=== PATIENT | female | born 1995 | race Caucasian/White ===

== ENCOUNTER 2017-03-08 21:42 | Emergency (ER) | payer MEDICAID ==
[~2017-03-08] VITALS: Ht 167.6 cm; Wt 78.1 kg
[~2017-03-08 21:42] MED LIST: FLU60SYR19 IM
[2017-03-08 21:44] VITALS: BP 118/56; PULSE 63; RESP 18; TEMP 98.3; O2SAT 100
--- NOTE | 2017-03-08 22:26 | PD ---
HPI Chief Complaint: Headache Time Seen by Provider: 21:52 Travel History International Travel<30 days: No Contact w/Intl Traveler<30days: No Traveled to known affect area: No History of Present Illness HPI The patient was seen and examined in the presence of the nurse. This patient is 25 weeks . She complains of headache on the right forehead for the last one week. It usually hurts her at night but it's fine during the day. No thunderclap onset. No head injury. No fever. Severity is moderate. It feels like a throbbing in the right forehead. She denies any complaint. No pelvic pain or vaginal bleeding. She has not mentioned it to her physician. PFSH Past Medical History Medical History: Denies Significant Hx Diminished Hearing: No Tetanus Vaccination: Unknown Influenza Vaccination: Yes ?: LMP: EDC 06-24-16 Past Surgical History Surgical History: No Previous Surgery Social History Alcohol Use: No Tobacco Use: No Substance Use: No Allergies-Medications (Allergen,Severity, Reaction): Coded Allergies: No Known Allergies (Unverified , 03/08/17) Reported Meds & Prescriptions Reported Meds & Active Scripts Active Reported Fluarix Quad 7030-1730 Inj (Influenza Virus Vaccine) 0.5 Ml Syr 0.5 Ml IM .ONCE Review of Systems General / Constitutional: No: Fever HENT: Positive: Headaches Cardiovascular: No: Chest Pain or Discomfort Respiratory: No: Cough Physical Exam Narrative NEUROLOGICAL: Awake and alert. Pupils are equal round and reactive. Motor and sensory grossly within normal limits. Five out of 5 muscle strength in all muscle groups. Normal speech. Psych: Normal mood and affect. Normal insight and judgment. GASTROINTESTINAL: Abdomen soft, non-tender, nondistended. Positive bowel sounds. No hepato-splenomegaly, or palpable masses. No guarding. Gravid uterus is nontender Data Data Last Documented VS Vital Signs Date Time Temp Pulse Resp B/P (MAP) Pulse Ox O2 Delivery O2 Flow Rate FiO2 03/08/17 22:05 63 18 100 Room Air 03/08/17 21:44 98.3 118/56 (76) MDM Medical Decision Making Medical Screen Exam Complete: Yes Emergency Medical Condition: Yes Medical Record Reviewed: Yes Differential Diagnosis Differential diagnosis includes migraine, tension headache, cluster headache, meningitis. Narrative Course I have reviewed the patient's electronic medical record. Etiology of her headache is not entirely clear. I don't see any red flags to suggest emergent imaging is indicated. Presentation not consistent with subarachnoid hemorrhage or meningitis or stroke. There are no objective findings on exam It seems odd that the headache is only there at night and resolves during the day This makes me less likely to think it is something emergent I recommended she discuss it with her physician Return if worse Blood pressure is normal, there has been no preeclampsia this I'm going to have CBC and CMP drawn, ruling out help syndrome If labs are normal I will discharge her home Diagnosis Primary Impression: Headache Qualified Codes: R51 - Headache Additional Impression: Qualified Codes: Z3A.25 - 25 weeks gestation of Additional Instructions: The patient was advised to follow up with their physician and return if they worsen. Med/Other Pt SpecificInfo: Other Disposition: 01 DISCHARGE HOME Condition: Stable Arturo Smith MD Mar 08, 2017 22:26
[2017-03-08 23:14] LABS: AUTOMATED NEUTROPHIL # 5.5 TH/MM3 (1.8-7.7); BASOPHIL % 0.2 % (0.0-2.0); EOSINOPHIL # 0.1 TH/MM3 (0-0.4); EOSINOPHIL % 1.5 % (0.0-4.0); HEMATOCRIT 30.7 % (35.0-46.0); HEMO FLAGS DIFF FINAL; LYMPHOCYTE # 1.3 TH/MM3 (1.0-4.8); MEAN CELL VOLUME 82.4 FL (80.0-100.0); MEAN CORPUSCULAR HGB CONC 32.7 % (32.0-36.0); MONO % 7.4 % (0.0-8.0); NEUT % 73.9 % (16.0-70.0); PLATELET COUNT 249 TH/MM3 (150-450); RED BLOOD COUNT 3.73 MIL/MM3 (4.00-5.30); RED CELL DISTRIBUTION WIDTH 13.3 % (11.6-17.2); WHITE BLOOD COUNT 7.4 TH/MM3 (4.0-11.0)
[2017-03-08 23:22] LABS: CHLORIDE 107 MEQ/L (98-107); POTASSIUM 3.6 MEQ/L (3.5-5.1); SODIUM (NA) 140 MEQ/L (136-145)
[2017-03-08 23:26] LABS: ANION GAP 8 MEQ/L (5-15); BICARBONATE 24.8 MEQ/L (21.0-32.0); BLOOD UREA NITROGEN 3 MG/DL (7-18)
[2017-03-08 23:29] LABS: ALT (GPT) 13 U/L (10-53); AST (GOT) 11 U/L (15-37); GLOMERULAR FILTRATION RATE 241 ML/MIN (>89)
[2017-03-08 23:31] LABS: TOTAL BILIRUBIN ADULT 0.2 MG/DL (0.2-1.0)
[2017-03-08 23:32] LABS: ALKALINE PHOSPHATASE 97 U/L (45-117)
[2017-03-09] MEDS ORDERED: ACETAMINOPHEN 500 MG CPLT PO ONE
[2017-03-09 00:18] VITALS: BP 115/60; PULSE 72; RESP 18; O2SAT 98
[2017-03-09 00:25] LABS: BLOOD, URINE NEG (NEG); GLUCOSE,URINE NEG (NEG); KETONE, URINE NEG (NEG); NITRITE,URINE NEG (NEG); PH, URINE 5.5 (5.0-8.5)
[2017-03-09 00:38] LABS: BACTERIA, URINE FEW /hpf; RBC, URINE 0-2 /hpf (0-3); SQUAMOUS EPITHELIAL CELL URINE 0-5 /hpf (0-5); URINE COLOR STRAW (YELLW/STRAW); WBC, URINE 0-2 /hpf (0-5)
--- NOTE | 2017-03-09 00:41 | PD ---
Physical Exam Date Seen by Provider: Mar 09, 2017 Time Seen by Provider: 23:30 Narrative Accepted in transfer of care from Dr. Smith Data Data Last Documented VS Vital Signs Date Time Temp Pulse Resp B/P (MAP) Pulse Ox O2 Delivery O2 Flow Rate FiO2 03/09/17 00:18 72 18 115/60 (78) 98 Room Air 03/08/17 21:44 98.3 Orders Orders Complete Blood Count With Diff (03/08/17 22:37) Comprehensive Metabolic Panel (03/08/17 22:37) Acetaminophen (Tylenol) (03/09/17 00:00) Ua Includes Microscopic (03/09/17 00:03) Ed Discharge Order (03/09/17 00:38) Labs Laboratory Tests Test 03/08/17 22:55 03/09/17 00:00 White Blood Count 7.4 TH/MM3 Red Blood Count 3.73 MIL/MM3 Hemoglobin 10.1 GM/DL Hematocrit 30.7 % Mean Corpuscular Volume 82.4 FL Mean Corpuscular Hemoglobin 27.0 PG Mean Corpuscular Hemoglobin Concent 32.7 % Red Cell Distribution Width 13.3 % Platelet Count 249 TH/MM3 Mean Platelet Volume 8.0 FL Neutrophils (%) (Auto) 73.9 % Lymphocytes (%) (Auto) 17.0 % Monocytes (%) (Auto) 7.4 % Eosinophils (%) (Auto) 1.5 % Basophils (%) (Auto) 0.2 % Neutrophils # (Auto) 5.5 TH/MM3 Lymphocytes # (Auto) 1.3 TH/MM3 Monocytes # (Auto) 0.5 TH/MM3 Eosinophils # (Auto) 0.1 TH/MM3 Basophils # (Auto) 0.0 TH/MM3 CBC Comment DIFF FINAL Differential Comment Blood Urea Nitrogen 3 MG/DL Creatinine 0.34 MG/DL Random Glucose 102 MG/DL Total Protein 6.2 GM/DL Albumin 2.7 GM/DL Calcium Level 8.0 MG/DL Alkaline Phosphatase 97 U/L Aspartate Amino Transf (AST/SGOT) 11 U/L Alanine Aminotransferase (ALT/SGPT) 13 U/L Total Bilirubin 0.2 MG/DL Sodium Level 140 MEQ/L Potassium Level 3.6 MEQ/L Chloride Level 107 MEQ/L Carbon Dioxide Level 24.8 MEQ/L Anion Gap 8 MEQ/L Estimat Glomerular Filtration Rate 241 ML/MIN Urine Color STRAW Urine Turbidity CLEAR Urine pH 5.5 Urine Specific [place] 1.003 Urine Protein NEG mg/dL Urine Glucose (UA) NEG mg/dL Urine Ketones NEG mg/dL Urine Occult Blood NEG Urine Nitrite NEG Urine Bilirubin NEG Urine Leukocyte Esterase NEG Urine RBC 0-2 /hpf Urine WBC 0-2 /hpf Urine Squamous Epithelial Cells 0-5 /hpf Urine Bacteria FEW /hpf MDM Medical Record Reviewed: Yes Supervised Visit with MOISÉS: No Differential Diagnosis Accepted in transfer of care from Dr. Smith please refer to his dictation Narrative Course accepted in transfer of care from Dr. Smith; patient informed of lab results be in a creatinine glucose and LFTs are all normal range urinalysis shows no protein or glucose; headache not sudden onset not thunderclap not worst ever response to acetaminophen only occurs at nighttime heart tones 156 per patient's nurse Patient with headache but does not want any medications other than acetaminophen given Tylenol 500 mg Patient is stable for outpatient management encouraged close follow-up per her primary [facility]IST Diagnosis Primary Impression: Headache Qualified Codes: R51 - Headache Additional Impression: Qualified Codes: Z3A.25 - 25 weeks gestation of Referrals: Field Aide 1 day Patient Instructions: General Instructions Additional Instruction: The patient was advised to follow up with their physician and return if they worsen. Disposition: 01 DISCHARGE HOME Condition: Stable Cher Farooq MD Mar 09, 2017 00:41
== END 2017-03-09 00:52 | disposition home or self-care (01) ==
LOC: PHED 21:42
DX: O26.892 Other specified pregnancy related conditions, second trimester (principal); R51 Headache; Z3A.25 25 weeks gestation of pregnancy
CPT/HCPCS: 80053; 81001; 85025; 99283

== ENCOUNTER 2017-06-11 08:32 | Observation (INO) | payer MEDICAID ==
[~2017-06-11] VITALS: Ht 167.6 cm; Wt 83.0 kg
[~2017-06-11 08:32] MED LIST changes: +TRICTAB PO
[2017-06-11] MEDS ORDERED: TERBUTALINE INJ 1 MG/ML AMP ONE (09:02)
--- NOTE | 2017-06-11 09:07 | HHI.HP ---
HPI Chief Complaint Presenting for version Travel History International Travel<30 Days: No Contact w/Intl Traveler<30Days: No History of Present Illness HPI 21 year old at 38 weeks presenting today for external version. Patient states she has no other complaints over the past few weeks. Denies nausea, vomiting, fever, chills, abdominal pain, contractions, large discharges of vaginal fluid, notes some normal/consistent light/white vaginal fluid, no blood or foul smelling discharge. Denies dysuria, frequency, increase in volume, change in urine smell/color. Denies chest pain, shortness of breath, changes in bowel habits, lightheadedness, dizziness. Notes normal movement. No concerns at this time. History Past Medical History Medical History: Denies Significant Hx Past Surgical History Surgical History: No Previous Surgery Family History Family History: Negative Social History Alcohol Use: No Tobacco Use: No Substance Abuse: No Allergies-Medications (Allergen,Severity, Reaction): Coded Allergies: No Known Allergies (Unverified , 04/30/17) Home Meds Active Scripts Vit-Ferrous Fumarate () 27 Mg Iron-1 Mg Tab, 1 TAB PO DAILY for Nutritional Supplement, #30 TAB 11 Refills Prov:Kimberly Murray 04/02/17 Reported Medications Influenza Virus Vaccine Quad Inj 36Mos Up (Fluarix Quad 0594-2234 Inj) 0.5 Ml Syr, 0.5 ML IM .ONCE for Immunization, #1 SYRINGE 0 Refills 03/05/17 Review of Systems General / Constitutional: No: Fever, Chills Eyes: No: Blurred Vision, Visual changes HENT: No: Headaches, Lightheadedness Cardiovascular: No: Chest Pain or Discomfort, Palpitations Respiratory: No: Cough, Short of Breath, Wheezing Gastrointestinal: No: Nausea, Vomiting, Diarrhea, Abdominal Pain, Constipation , Changes in Bowel Habits Genitourinary: No: Urgency, Frequency, Dysuria, Nocturia, Hematuria Musculoskeletal: No: Weakness, Cramping Skin: No Rash, No Itching, No Dryness Neurologic: No: Weakness, Dizziness Psychiatric: No: Anxiety, Depression Endocrine: No: Polydipsia, Polyuria Hematologic/Lymphatic: No Easy Bruising, No Lymph Node Enlargement Physical Exam Narrative GENERAL: Well-nourished, well-developed patient. SKIN: Warm and dry. HEAD: Normocephalic and atraumatic. EYES: No scleral icterus. No injection or drainage. ENT: No nasal drainage noted. Mucous membranes pink. Airway patent. NECK: Supple, trachea midline. No JVD. CARDIOVASCULAR: Regular rate and rhythm without murmurs, gallops, or rubs. RESPIRATORY: Breath sounds equal bilaterally. No accessory muscle use. BREASTS: Bilateral exam showed no masses , no retractions, no nipple discharge. ABDOMEN/GI: Abdomen soft, non-tender, bowel sounds present, no rebound, no guarding Gravid to 38 weeks size GENITOURINARY: External Genitalia: intact and normal in appearance FHT's: Category: 1 Baseline: 145 Reactive: yes Variability: moderate Decels: none EXTREMITIES: No cyanosis or edema. BACK: Nontender without obvious deformity. No CVA tenderness. NEUROLOGICAL: Awake and alert. Motor and sensory grossly within normal limits. Five out of 5 muscle strength in all muscle groups. Normal speech. Caprini VTE Risk Assessment Caprini VTE Risk Assessment: No/Low Risk (score <= 1) Assessment/Plan Attending Attestation 21 year old at 38 weeks presenting for external version. Currently asymptomatic, experiencing no contractions, no SROM. -Category 1 tracing, reassuring -Dr. Ventura has explained version procedure and possible complications, patient expressed understanding and agreed -Will perform version today D/W dr. Liya Polo,Faizan Murguia MD R1 Jun 11, 2017 09:07
[2017-06-11] MEDS ORDERED: LACTATED RINGER'S 1000 ML INJ 1,000 ML IV SCH (09:30)
[2017-06-11 09:43] LABS: AUTOMATED NEUTROPHIL # 8.1 TH/MM3 (1.8-7.7); BASOPHIL % 0.4 % (0.0-2.0); EOSINOPHIL # 0.1 TH/MM3 (0-0.4); EOSINOPHIL % 1.2 % (0.0-4.0); HEMATOCRIT 28.5 % (35.0-46.0); LYMPH % 14.4 % (9.0-44.0); LYMPHOCYTE # 1.5 TH/MM3 (1.0-4.8); MEAN CELL VOLUME 68.3 FL (80.0-100.0); MEAN CORPUSCULAR HEMOGLOBIN 21.5 PG (27.0-34.0); MEAN CORPUSCULAR HGB CONC 31.4 % (32.0-36.0); MEAN PLATELET VOLUME 8.4 FL (7.0-11.0); MONO % 6.1 % (0.0-8.0); MONOCYTE # 0.6 TH/MM3 (0-0.9); NEUT % 77.9 % (16.0-70.0); PLATELET COUNT 253 TH/MM3 (150-450); RED BLOOD COUNT 4.18 MIL/MM3 (4.00-5.30); RED CELL DISTRIBUTION WIDTH 18.4 % (11.6-17.2); WHITE BLOOD COUNT 10.3 TH/MM3 (4.0-11.0)
[2017-06-11] MEDS ORDERED: TERBUTALINE INJ 1 MG/ML AMP SQ ONE (09:45)
[2017-06-11] MEDS ORDERED: fentaNYL 2MCG-BUPIV 0.125% INJ 100 ML ONE (09:53)
[2017-06-11 09:57] LABS: AMORPHOUS SEDIMENT, URINE RARE; BACTERIA, URINE MANY /hpf; BILIRUBIN, URINE NEG (NEG); BLOOD, URINE TRACE (NEG); GLUCOSE,URINE NEG (NEG); KETONE, URINE NEG (NEG); MUCUS URINE MOD /lpf (OCC); NITRITE,URINE NEG (NEG); SQUAMOUS EPITHELIAL CELL URINE 37 /hpf (0-5); URINE COLOR YELLOW (YELLW/STRAW); URINE LEUKOCYTE ESTERASE LARGE (NEG)
--- NOTE | 2017-06-11 10:52 | PD.OP ---
Operative Report Date of Surgery: Jun 11, 2017 Preoperative Diagnosis: 1. IUP @ 38.1wks 2. breech presentation Postoperative Diagnosis: same Procedure: ECV Anesthesia: epidural Surgeon: Crow Ventura Airfield Operations Specialist(s): Khari Velazco Operation and Findings: The R/B/A were discussed with the pt, all questions answered, and consents signed. A timeout was completed and NST reviewed revealing a category 1 tracing with FHTs in the 135s. Ultrasound was performed and confirmed presentation to be breech with head in maternal LUQ. Epidural anesthesia was found to be adequate. Terbutaline (0.25mg) was given IM and after uterine relaxation was confirmed by palpation, the rump was isolated, disengaged, and gentle manual force was applied in an upward and counter clockwise fashion. Simultaneously, gentle pressure was applied to the head in a downward counter clockwise fashion. After a single attempt, US confirmed head in the RUQ presentation. Once again pressure was applied on both sides in a counter clockwise fashion, however the breech was unable to be moved from the maternal pelvis. FHTs were in the 90s. Maternal O2 was placed and L lateral tilt performed. FHTs improved to 110 and then 130s. The pt tolerated the procedure well. She will be monitored for 1 hour and then d/c'd to home. 1'cs scheduled for June 19 @ 10:30am with Dr. Velazco. Crow Ventura MD Jun 11, 2017 10:52
== END 2017-06-11 13:05 | disposition home or self-care (01) ==
LOC: H2EB 08:32
PROVIDERS: ADMIT Obstetrics & Gynecology; ATTEND Obstetrics & Gynecology
DX: O32.1XX0 Maternal care for breech presentation, not applicable or unspecified (principal); O26.893 Other specified pregnancy related conditions, third trimester; R82.99 Other abnormal findings in urine; Z3A.38 38 weeks gestation of pregnancy
CPT/HCPCS: 80307; 81001; 85025; 86850; 86900; 86901; 87086; 96372; G0378; J3010; J7120; J3105

== ENCOUNTER 2017-06-19 08:30 | Inpatient (IN) | payer MEDICAID ==
[~2017-06-19] VITALS: Ht 167.6 cm; Wt 83.0 kg
--- NOTE | 2017-06-19 08:55 | HHI.HP ---
HPI Chief Complaint Scheduled Date Seen: Jun 19, 2017 Travel History International Travel<30 Days: No Contact w/Intl Traveler<30Days: No History of Present Illness HPI Mrs. Morrow is a 21-year-old presenting at 39/2 weeks gestation for her scheduled . Patient is currently asymptomatic and denies any fevers, chills, shortness of breath, chest pain, NVD, ABD pain, or calf tenderness. Patient endorses good movement and denies any vaginal bleeding, vaginal discharge, loss of fluid, or dysuria. Lastly, patient underwent attempted version, however procedure was unsuccessful. Therefore she is scheduled for her today. Weeks Gestation: 39 Para: 1 : 2 History Past Medical History Medical History: Denies Significant Hx Obstetric History Obstetric History - at full term, no complications Past Surgical History Surgical History: No Previous Surgery Family History Family History: Negative Social History Alcohol Use: No Tobacco Use: No Substance Abuse: No Allergies-Medications (Allergen,Severity, Reaction): Coded Allergies: No Known Allergies (Unverified , 04/30/17) Home Meds Active Scripts Vit-Ferrous Fumarate () 27 Mg Iron-1 Mg Tab, 1 TAB PO DAILY for Nutritional Supplement, #30 TAB 11 Refills Prov:Kimberly Murray 04/02/17 Reported Medications Influenza Virus Vaccine Quad Inj 36Mos Up (Fluarix Quad 3554-5286 Inj) 0.5 Ml Syr, 0.5 ML IM .ONCE for Immunization, #1 SYRINGE 0 Refills 03/05/17 Review of Systems Except as stated in HPI: all other systems reviewed are Neg (Per HPI) Physical Exam Narrative GENERAL: Well-nourished, well-developed patient. SKIN: Warm and dry. HEAD: Normocephalic and atraumatic. EYES: No scleral icterus. No injection or drainage. ENT: No nasal drainage noted. Mucous membranes pink. Airway patent. NECK: Supple, trachea midline. No JVD. CARDIOVASCULAR: Regular rate and rhythm without murmurs, gallops, or rubs. RESPIRATORY: Breath sounds equal bilaterally. No accessory muscle use. ABDOMEN/GI: Abdomen soft, non-tender, bowel sounds present, no rebound, no guarding Gravid to 39 weeks size FHT's: Category: 1 Baseline: 140s Reactive: Positive Variability: Moderate Decels: None EXTREMITIES: No cyanosis or edema. BACK: Nontender without obvious deformity. No CVA tenderness. NEUROLOGICAL: Awake and alert. Motor and sensory grossly within normal limits. Five out of 5 muscle strength in all muscle groups. Normal speech. Caprini VTE Risk Assessment Caprini VTE Risk Assessment: Mod/High Risk (score >= 2) Caprini Risk Assessment Model Point Value = 1 Point Value = 2 Point Value = 3 Point Value = 5 Age 41-60 Minor surgery BMI > 25 kg/m2 Swollen legs Varicose veins or History of unexplained or recurrent spontaneous Oral contraceptives or hormone replacement Sepsis (< 1 month) Serious lung disease, including pneumonia (< 1 month) Abnormal pulmonary function Acute myocardial infarction Congestive heart failure (< 1 month) History of inflammatory bowel disease Medical patient at bed rest Age 61-74 Arthroscopic surgery Major open surgery (> 45 min) Laparoscopic surgery (> 45 min) Malignancy Confined to bed (> 72 hours) Immobilizing plaster cast Central venous access Age >= 75 History of VTE Family history of VTE Factor V Leiden Prothrombin [id number] Lupus anticoagulant Anticardiolipin antibodies Elevated serum homocysteine Heparin-induced thrombocytopenia Other congenital or acquired thrombophilia Stroke (< 1 month) Elective arthroplasty Hip, pelvis, or leg fracture Acute spinal cord injury (< 1 month) Prophylaxis Regimen Total Risk Factor Score Risk Level Prophylaxis Regimen 0-1 Low Early ambulation 2 Moderate Order ONE of the following: *Sequential Compression Device (SCD) *Heparin 5000 units SQ BID 3-4 Higher Order ONE of the following medications: *Heparin 5000 units SQ TID *Enoxaparin/Lovenox 40 mg SQ daily (WT < 150 kg, CrCl > 30 mL/min) *Enoxaparin/Lovenox 30 mg SQ daily (WT < 150 kg, CrCl > 10-29 mL/min) *Enoxaparin/Lovenox 30 mg SQ BID (WT < 150 kg, CrCl > 30 mL/min) AND/OR *Sequential Compression Device (SCD) 5 or more Highest Order ONE of the following medications: *Heparin 5000 units SQ TID (Preferred with Epidurals) *Enoxaparin/Lovenox 40 mg SQ daily (WT < 150 kg, CrCl > 30 mL/min) *Enoxaparin/Lovenox 30 mg SQ daily (WT < 150 kg, CrCl > 10-29 mL/min) *Enoxaparin/Lovenox 30 mg SQ BID (WT < 150 kg, CrCl > 30 mL/min) AND *Sequential Compression Device (SCD) Data Data Vital Signs Reviewed: Yes Orders Orders Admit To Inpatient (06/19/17 ) Code Status (06/19/17 08:33) Vital Signs (Adult) .ON ADMISSION (06/19/17 08:33) Activity Oob Ad Betty (06/19/17 08:33) Heart (06/19/17 08:33) Urinary Catheter Management DELICIA.Q8H (06/19/17 08:33) ^ Preps (06/19/17 08:33) Scd / Naveen / Foot Pump DELICIA.QSHIFT (06/19/17 08:33) ^ Ultrasound For Locatio (06/19/17 08:33) Diet Npo (06/19/17 Breakfast) Lactated Ringer's 1000 Ml Inj (Lr 1000 M (06/19/17 08:33) Lactated Ringer's 1000 Ml Inj (Lr 1000 M (06/19/17 09:03) Cefazolin 2 Gm Premix (Ancef 2 Gm Premix (06/19/17 09:45) Citric Acid-Sodium Citrate Liq (Bicitra (06/19/17 10:15) Type And Screen (06/19/17 08:33) Complete Blood Count With Diff (06/19/17 08:33) Urinalysis - C+S If Indicated (06/19/17 08:33) Drug Screen, Random Urine (06/19/17 08:33) Inpatient Certification (06/19/17 ) Specimen To Be Collected PRN (06/19/17 08:33) Specimen To Be Collected PRN (06/19/17 08:33) Assessment/Plan Problem List: (1) 39 weeks gestation of ICD Codes: Z3A.39 - 39 weeks gestation of Status: Acute Assessment and Plan Mrs. Morrow is a 81-year-old presenting at 39/2 weeks gestation for her scheduled . 1. IUP at 39 weeks gestation -Continue routine antepartum care -Patient nothing by mouth since midnight -Category 1 tracing, reassuring 2. Scheduled after failed version -Preoperative orders placed -Patient received 2 g Ancef preoperatively, NKDA 3. GBS -Unknown DW: Dr. Velazco Discharge Planning Pending clinical course Jeff Diaz MD R2 Jun 19, 2017 08:55
[2017-06-19] MEDS ORDERED: LACTATED RINGER'S 1000 ML INJ 1,000 ML IV ONE ×2 (09:00→12:00)
[2017-06-19] MEDS ORDERED: LACTATED RINGER'S 1000 ML INJ 1,000 ML IV SCH ×2 (09:03→17:12)
[2017-06-19 09:34] LABS: BASOPHIL # 0.1 TH/MM3 (0-0.2); BASOPHIL % 0.6 % (0.0-2.0); EOSINOPHIL # 0.1 TH/MM3 (0-0.4); HEMATOCRIT 29.3 % (35.0-46.0); HEMOGLOBIN 9.1 GM/DL (11.6-15.3); LYMPH % 14.5 % (9.0-44.0); LYMPHOCYTE # 1.5 TH/MM3 (1.0-4.8); MEAN CELL VOLUME 66.9 FL (80.0-100.0); MEAN CORPUSCULAR HEMOGLOBIN 20.8 PG (27.0-34.0); MEAN CORPUSCULAR HGB CONC 31.1 % (32.0-36.0); MEAN PLATELET VOLUME 8.2 FL (7.0-11.0); MONO % 6.1 % (0.0-8.0); MONOCYTE # 0.6 TH/MM3 (0-0.9); NEUT % 77.8 % (16.0-70.0); PLATELET COUNT 236 TH/MM3 (150-450); RED BLOOD COUNT 4.38 MIL/MM3 (4.00-5.30); RED CELL DISTRIBUTION WIDTH 18.9 % (11.6-17.2); WHITE BLOOD COUNT 10.3 TH/MM3 (4.0-11.0)
[2017-06-19] MEDS ORDERED: ceFAZolin 2 GM PREMIX 50 ML IV SCH (09:45)
[2017-06-19 09:47] LABS: BACTERIA, URINE FEW /hpf; BILIRUBIN, URINE NEG (NEG); BLOOD, URINE TRACE (NEG); GLUCOSE,URINE NEG (NEG); KETONE, URINE NEG (NEG); MUCUS URINE FEW /lpf (OCC); NITRITE,URINE NEG (NEG); PH, URINE 7.5 (5.0-8.5); SQUAMOUS EPITHELIAL CELL URINE 27 /hpf (0-5); URINE COLOR YELLOW (YELLW/STRAW); URINE LEUKOCYTE ESTERASE LARGE (NEG)
[2017-06-19] MEDS ORDERED: ACETAMINOPHEN 1000 MG/100 ML 100 ML IV ONE (10:09)
[2017-06-19] MEDS ORDERED: MORPHINE SULFATE PF 5 MG/10 ML VIAL ONE (10:09)
[2017-06-19] MEDS ORDERED: CITRIC ACID-SODIUM CITRATE LIQ 30 ML UDC PO SCH (10:15)
[2017-06-19] MEDS ORDERED: EPIDURAL-DIPHENHYDRAMINE HCL 50 MG CAP PO PRN (11:30)
[2017-06-19] MEDS ORDERED: EPIDURAL-NO SYSTEMIC NARCOTICS PRN (11:30)
[2017-06-19] MEDS ORDERED: EPIDURAL-NALOXONE HCL 0.4 MG/ML AMP IV PUSH PRN (11:30)
[2017-06-19] MEDS ORDERED: EPIDURAL-DIPHENHYDRAMINE HCL 50 MG/ML VIAL IV PUSH PRN (11:30)
[2017-06-19] MEDS ORDERED: EPIDURAL-DO NOT ADMINISTER ANTICOAGULANTS PRN (11:30)
[2017-06-19] MEDS ORDERED: PHENYLEPH/NS 1000 MCG/10 ML SYR IV ONE (12:00)
[2017-06-19] MEDS ORDERED: OXYTOCIN 10 UNIT/ML AMP IV ONE (12:00)
[2017-06-19] MEDS ORDERED: ONDANSETRON HCL 4 MG/2 ML VIAL IV ONE (12:00)
[2017-06-19] MEDS ORDERED: ePHEDrine/NS 25 MG/5 ML SYRINGE IV ONE (12:00)
[2017-06-19] MEDS ORDERED: KETOROLAC TROMETHAMINE 30 MG/ML (IVP) VIAL IV PUSH ONE (12:00)
[2017-06-19] MEDS ORDERED: oxyCODONE/ACETAMINOPHEN 5 MG/325 MG TAB PO PRN (12:15)
[2017-06-19] MEDS ORDERED: DOCUSATE SODIUM 50 MG/SENNA 8.6 MG TAB PO PRN (12:15)
[2017-06-19] MEDS ORDERED: KETOROLAC TROMETHAMINE 60 MG/2 ML (IM) VIAL IM PRN (12:15)
[2017-06-19] MEDS ORDERED: ONDANSETRON HCL 4 MG/2 ML VIAL IV PUSH PRN (12:15)
[2017-06-19] MEDS ORDERED: SIMETHICONE 80 MG CHEWABLE TAB PO PRN (12:15)
[2017-06-19] MEDS ORDERED: SODIUM CHLORIDE 0.9% FLUSH 10 ML FLUSH IV FLUSH PRN (12:15)
[2017-06-19] MEDS ORDERED: ACETAMINOPHEN 325 MG TAB PO PRN (12:15)
[2017-06-19] MEDS ORDERED: ZOLPIDEM TARTRATE 5 MG TAB PO PRN (12:15)
[2017-06-19] MEDS ORDERED: CEFAZOLIN INJ 2,000 MG in SODIUM CHLORIDE 0.9% INJ 100 ML IV SCH (12:15)
[2017-06-19] MEDS ORDERED: OXYTOCIN 30 UNITS-500ML PREMIX 500 ML IV ONE (12:15)
--- NOTE | 2017-06-19 13:32 | MP ---
cc: Khari Velazco MD DATE OF OPERATION: 06/19/2017 PREOPERATIVE DIAGNOSIS: Term intrauterine in breech presentation. POSTOPERATIVE DIAGNOSIS: Term intrauterine in breech presentation. PROCEDURE PERFORMED: Primary low transverse section. SURGEON: Dr. Velazco NETBACKUP ENGINEER: _Nya___ [facility]. ANESTHESIA: Spinal INDICATION: The patient is a 21-year-old white female, at 39-weeks, presents for delivery due to the baby in a breech presentation. This is confirmed by ultrasound just prior to going to the operating room. PROCEDURE: The patient was taken to the operating room and placed in the supine position on the operating table. After adequate spinal anesthesia was administered, she was prepped and draped for abdominal surgery. A Pfannenstiel incision was made and carried through fascia sharply. The fascia was dissected off the rectus muscle and the rectus split in the midline and the peritoneal cavity entered sharply. The incision was extended superior and inferiorly. The opening stretched open and the bladder blade placed in the lower uterine incision. The visceral peritoneum reflected off the lower uterine segment and a transverse hysterotomy was made and extended bluntly bilaterally, clear fluid noted. The baby in a carlos breech presentation was delivered in the usual fashion without difficulty. The delivery was performed at 11:21 a.m. The baby was a male infant, 4610 grams of 10 pounds 3 ounces. was 8 and 9. There were no complications with delivery. Delayed cord clamping was done. Cord blood was obtained. Placenta was manually extracted without difficulty. The uterus exteriorized. The hysterotomy was closed in running layer of 0-chromic followed by imbricating suture of the same. Hemostasis was achieved. The bladder was reapproximated with running suture of 2-0 Vicryl. The uterus was elevated and ovaries noted to be normal. The blood was suctioned from the cul-de-sac gutters and the uterus was placed in the peritoneal cavity. The parietal peritoneum was closed in running layer of 2-0 Vicryl. The rectus muscle was reapproximated with stick ties of Chromic and Vicryl. The fascia was closed in running layer of 0-Vicryl. Subcu tissues brought together with 3-0 plain catgut suture in running fashion. 3-0 Monocryl used in subcuticular stitch on the skin. Pressure dressing and Steri-Strips were applied. Estimated blood loss was 500 mL. There were no complications. Sponge and needle count correct x 2. The patient was taken to the recovery room in stable condition. MD DEVONTE Villalobos/OSORIO/ana rosa , 12:23 PM , 12:58 PM AJAY
[2017-06-19 13:50] VITALS: BP 117/67; PULSE 59; RESP 16; TEMP 97.8; O2SAT 95
[2017-06-19] MEDS: ceFAZolin 2 GM PREMIX 50 ML IV SCH (18:35)
[2017-06-19] MEDS ORDERED: SODIUM CHLORIDE 0.9% FLUSH 10 ML FLUSH IV FLUSH SCH (21:00)
[2017-06-19] MEDS ORDERED: OXYTOCIN 30 UNITS-500ML PREMIX 500 ML IV PRN (22:15)
[2017-06-20] MEDS: ceFAZolin 2 GM PREMIX 50 ML IV SCH (01:58)
[2017-06-20] MEDS: IBUPROFEN 600 MG TAB PO PRN ×4 (02:02→21:44)
[2017-06-20 05:53] LABS: AUTOMATED NEUTROPHIL # 10.7 TH/MM3 (1.8-7.7); BASOPHIL # 0.1 TH/MM3 (0-0.2); BASOPHIL % 0.5 % (0.0-2.0); EOSINOPHIL % 0.3 % (0.0-4.0); HEMATOCRIT 21.7 % (35.0-46.0); LYMPH % 8.7 % (9.0-44.0); LYMPHOCYTE # 1.1 TH/MM3 (1.0-4.8); MEAN CELL VOLUME 66.1 FL (80.0-100.0); MEAN CORPUSCULAR HEMOGLOBIN 21.2 PG (27.0-34.0); MEAN PLATELET VOLUME 8.4 FL (7.0-11.0); MONO % 6.9 % (0.0-8.0); MONOCYTE # 0.9 TH/MM3 (0-0.9); NEUT % 83.6 % (16.0-70.0); PLATELET COUNT 190 TH/MM3 (150-450); RED BLOOD COUNT 3.28 MIL/MM3 (4.00-5.30); RED CELL DISTRIBUTION WIDTH 19.2 % (11.6-17.2); WHITE BLOOD COUNT 12.8 TH/MM3 (4.0-11.0)
--- NOTE | 2017-06-20 07:15 | HHI.OB ---
Subjective Post Operative Day: 1 Remarks Patient doing well sitting up and holding baby, having normal pain level. Postop, no nausea vomiting Objective Vitals/I&O Vital Signs Date Time Temp Pulse Resp B/P (MAP) Pulse Ox O2 Delivery O2 Flow Rate FiO2 06/19/17 13:50 97.8 59 16 95 06/19/17 13:50 117/67 (84) Result Diagram: 06/20/17 0516 Objective Remarks GENERAL: Well-nourished, well-developed patient. CARDIOVASCULAR: Regular rate and rhythm without murmurs, gallops, or rubs. RESPIRATORY: Breath sounds equal bilaterally. No accessory muscle use. ABDOMEN/GI: Abdomen soft, non-tender, bowel sounds present. Incision: Clean, dry and intact. Fundus: Firm, non-tender at umbilicus. GENITOURINARY: Light to moderate bleeding. EXTREMITIES: No cyanosis or edema, non-tender, without signs of DVT. Medications and IVs Current Medications Medications (Trade) Dose Ordered Sig/Franky Route Start Time Stop Time Status Last Admin Lactated Ringer's 1,000 ml @ 150 mls/hr Q6H40M IV 06/19/17 09:03 06/19/17 09:53 Cefazolin Sodium/ Dextrose 50 ml @ 100 mls/hr TRIAL ATTORNEY IV 06/19/17 09:45 06/23/17 09:44 06/19/17 10:11 (Bicitra Liq) 30 ml TRIAL ATTORNEY PO 06/19/17 10:15 06/23/17 10:14 06/19/17 10:11 Lactated Ringer's 1,000 ml @ 100 mls/hr Q10H IV 06/19/17 17:12 06/20/17 13:11 Oxytocin 500 ml @ 100 mls/hr UNSCH X1 PRN IV 06/19/17 22:15 06/20/17 22:14 (NS Flush) 2 ml BID IV FLUSH 06/19/17 21:00 (NS Flush) 2 ml UNSCH PRN IV FLUSH 06/19/17 12:15 (Mylicon Chew) 80 mg QID PRN PO 06/19/17 12:15 (Tylenol) 650 mg Q6H PRN PO 06/19/17 12:15 (Motrin) 600 mg Q6H PRN PO 06/19/17 12:15 2/28/18 02:02 (Toradol Inj) 60 mg UNSCH X1 PRN IM 06/19/17 12:15 06/20/17 12:14 (Percocet 5-325 Mg) 1 tab Q4H PRN PO 06/19/17 12:15 (Percocet 5-325 Mg) 2 tab Q4H PRN PO 06/19/17 12:15 (Belen-Colace) 2 tab Q12H PRN PO 06/19/17 12:15 (Ambien) 5 mg HS PRN PO 06/19/17 12:15 (M-M-R Ii Inj) 0.5 ml ONCE ONCE SQ 06/20/17 16:00 06/20/17 16:01 (Boostrix Inj) 0.5 ml ONCE ONCE IM 06/20/17 16:00 06/20/17 16:01 (Zofran Inj) 4 mg Q6H PRN IV PUSH 06/19/17 12:15 Miscellaneous Information NO SYSTEMIC NARCOTICS TO BE GIVEN FO... UNSCH PRN .XX 06/19/17 11:30 06/20/17 11:29 (Narcan Inj) 0.4 mg UNSCH PRN IV PUSH 06/19/17 11:30 06/20/17 11:29 (Benadryl Inj) 25 mg Q6H PRN IV PUSH 06/19/17 11:30 06/20/17 11:29 (Benadryl) 50 mg Q6H PRN PO 06/19/17 11:30 06/20/17 11:29 Miscellaneous Information ALL NURSING DEPARTMENTS UNSCH PRN .XX 06/19/17 11:30 06/20/17 11:29 Assessment/Plan Problem List: (1) 39 weeks gestation of ICD Codes: Z3A.39 - 39 weeks gestation of Status: Acute Assessment and Plan Mrs. Morrow is a 21-year-old WF who is day 1 postop her scheduled C- section. 1. IUP at 39 weeks gestation 2. Scheduled after failed version, now day 1 postop doing well, plan advancement of diet and ambulation and continued progressive postop care - DW: Dr. Velazco Discharge Planning Pending clinical course Khari Velazco II, MD Jun 20, 2017 07:15
[2017-06-20 12:00] VITALS: BP_SYST 116; BP_SYST 166; BP_DIAS 56; PULSE 58; RESP 16; TEMP 98
[2017-06-20 16:00] VITALS: BP 109/54; PULSE 54; RESP 16; TEMP 98
[2017-06-20] MEDS ORDERED: DIPHTH/TETANUS/ACEL PERTUSSIS (BOOSTER) 0.5 ML VIAL/PFS IM ONE (16:00)
[2017-06-20] MEDS ORDERED: MEASLES, MUMPS, RUBELLA VACCINE 0.5 ML VIAL SQ ONE (16:00)
[2017-06-20 20:00] VITALS: BP 103/66; PULSE 68; RESP 18; TEMP 98.5; O2SAT 98
[2017-06-21] MEDS: oxyCODONE/ACETAMINOPHEN 5 MG/325 MG TAB PO PRN ×2 (07:28→13:03)
[2017-06-21] MEDS: IBUPROFEN 600 MG TAB PO PRN ×2 (07:28→13:03)
--- NOTE | 2017-06-21 07:50 | HHI.OB ---
Subjective Post Operative Day: 2 Remarks Pt seen and examined this morning. Postoperative day # 2 AFVSS overnight. Incision nondraining. Decreased lochia. Denies dysuria. No breast tenderness. She is feeding the baby via breast. Appetite good. No nausea or vomiting. Patient endorses having a bowel movement and continues to pass bowel gas. Ambulating well. Denies calf pain or shortness of breath. Otherwise, she is doing well this morning and has no other concerns. Objective Vitals/I&O Vital Signs Date Time Temp Pulse Resp B/P (MAP) Pulse Ox O2 Delivery O2 Flow Rate FiO2 06/20/17 20:00 98.5 68 18 103/66 (78) 98 06/20/17 16:00 98.0 54 16 109/54 (72) 06/20/17 12:00 98.0 58 16 166/56 (92) 06/20/17 12:00 116/56 (76) Result Diagram: 06/20/17 0516 Objective Remarks GENERAL: Well-nourished, well-developed patient. CARDIOVASCULAR: Regular rate and rhythm without murmurs, gallops, or rubs. RESPIRATORY: Breath sounds equal bilaterally. No accessory muscle use. ABDOMEN/GI: Abdomen soft, non-tender, bowel sounds present. Incision: Clean, dry and intact. Fundus: Firm, non-tender at umbilicus. GENITOURINARY: Light to moderate bleeding. EXTREMITIES: No cyanosis or edema, non-tender, without signs of DVT. Medications and IVs Current Medications Medications (Trade) Dose Ordered Sig/Franky Route Start Time Stop Time Status Last Admin Lactated Ringer's 1,000 ml @ 150 mls/hr Q6H40M IV 06/19/17 09:03 06/19/17 09:53 Cefazolin Sodium/ Dextrose 50 ml @ 100 mls/hr PLASTIC SURGERY ASSISTANT IV 06/19/17 09:45 06/23/17 09:44 06/19/17 10:11 (Bicitra Liq) 30 ml PLASTIC SURGERY ASSISTANT PO 06/19/17 10:15 06/23/17 10:14 06/19/17 10:11 (NS Flush) 2 ml BID IV FLUSH 06/19/17 21:00 (NS Flush) 2 ml UNSCH PRN IV FLUSH 06/19/17 12:15 (Mylicon Chew) 80 mg QID PRN PO 06/19/17 12:15 (Tylenol) 650 mg Q6H PRN PO 06/19/17 12:15 (Motrin) 600 mg Q6H PRN PO 06/19/17 12:15 06/21/17 07:28 (Percocet 5-325 Mg) 1 tab Q4H PRN PO 06/19/17 12:15 (Percocet 5-325 Mg) 2 tab Q4H PRN PO 06/19/17 12:15 06/21/17 07:28 (Belen-Colace) 2 tab Q12H PRN PO 06/19/17 12:15 (Ambien) 5 mg HS PRN PO 06/19/17 12:15 (Zofran Inj) 4 mg Q6H PRN IV PUSH 06/19/17 12:15 Assessment/Plan Problem List: (1) 39 weeks gestation of ICD Codes: Z3A.39 - 39 weeks gestation of Status: Acute Assessment and Plan 21 y/o female who is post operative day # 2 s/p . -Continue routine care. -Percocet and Motrin PRN pain. -Encouraged OOB. Advised pelvic rest for 6 wks. Patient will need a follow-up appointment in 1 week for incision check. -Re: ctrl, she would like an IUD placed by her [employer] [facility]. -Anticipate discharge today or tomorrow depending baby's discharge status. sonny Ndiaye MD Discharge Planning Today or tomorrow pending baby's discharge status Jeff Diaz MD R2 Jun 21, 2017 07:50
[2017-06-21] MEDS ORDERED: OXYC1TAB63 PO (07:51)
[2017-06-21] MEDS ORDERED: IBUP-232 PO (07:51)
[2017-06-21] MEDS ORDERED: PERI PO (07:51)
--- NOTE | 2017-06-21 07:53 | HHI.DCPOC ---
Discharge Care Plan Diagnosis: (1) delivery delivered Report Symptoms to Your Doctor -Temperature above 100.5 degrees -Redness, of incision or excessive or foul smelling drainage -Unusual pain or calf pain -Increased vaginal bleeding -Painful or difficulty urinating -Feelings of extreme sadness or anxiety after 2 weeks Goals to Promote Your Health * To prevent worsening of your condition and complications * To maintain your health at the optimal level Directions to Meet Your Goals Take your medications as prescribed Follow your dietary instruction Follow activity as directed Ensure plenty of rest for recovery Drink fluids for hydration Keep your appointments as scheduled Take your immunizations and boosters as scheduled If your symptoms worsen call your PCP, if no PCP go to Urgent Care Center or Emergency Room Smoking is Dangerous to Your Health. Avoid second hand smoke Call the 24-hour crisis hotline for domestic abuse at Jeff Diaz MD R2 Jun 21, 2017 07:52
[2017-06-21 08:00] VITALS: BP 115/66; PULSE 65; RESP 18; TEMP 98.1
== END 2017-06-21 14:20 | disposition home or self-care (01) | DRG 766 ==
LOC: UNDOADMIN 08:30 → H2EB 08:30 → H2EA 08:30 → H1EA 13:37
PROVIDERS: ADMIT Obstetrics & Gynecology Maternal & Fetal Medicine; ATTEND Obstetrics & Gynecology Maternal & Fetal Medicine
PROC: 10D00Z1 Extraction of Products of Conception, Low, Open Approach (ICD-10-PCS; principal; 2017-06-19)
DX: O32.1XX0 Maternal care for breech presentation, not applicable or unspecified (principal); Z37.0 Single live birth; Z3A.39 39 weeks gestation of pregnancy; Z23 Encounter for immunization
CPT/HCPCS: 59025; 76815; 80307; 81001; 85025; 86850; 86900; 86901; 90715; J0131; J0690; J1885; J2274; J2370; J2405; J2590; J3010; J7120